=== PATIENT | female | born 1950 | race Two or more races ===

== ENCOUNTER 2017-08-03 14:25 | Outpatient (CLI) | payer OTHER | END 2017-08-03 14:30 | disposition home or self-care (01) | LOC: RAD 501 14:25 | DX: M25.561 Pain in right knee (principal) ==

== ENCOUNTER → 2017-08-29 | Outpatient (CLI) | payer OTHER | END | disposition home or self-care (01) | LOC: NUCLEAR 13:00 | DX: M81.0 Age-related osteoporosis without current pathological fracture (principal); M85.9 Disorder of bone density and structure, unspecified ==

== ENCOUNTER 2017-09-29 10:40 | Outpatient (CLI) | payer OTHER | END 2017-09-29 10:50 | disposition home or self-care (01) | LOC: LAB 10:40 | DX: E21.3 Hyperparathyroidism, unspecified (principal); E88.89 Other specified metabolic disorders; M81.8 Other osteoporosis without current pathological fracture; E83.42 Hypomagnesemia ==

== ENCOUNTER 2017-10-05 13:15 | Outpatient (CLI) | payer OTHER | END 2017-10-05 13:16 | disposition home or self-care (01) | LOC: SONOGRAMA 13:15 | DX: E03.8 Other specified hypothyroidism (principal); E07.89 Other specified disorders of thyroid ==

== ENCOUNTER 2017-12-08 11:18 | Outpatient (CLI) | payer OTHER | END 2017-12-08 15:00 | disposition home or self-care (01) | LOC: TOM 11:18 | DX: J45.31 Mild persistent asthma with (acute) exacerbation (principal) ==

== ENCOUNTER → 2018-03-06 | Outpatient (CLI) | payer OTHER | END | disposition home or self-care (01) | LOC: RAD 501 15:30 | DX: D16.21 Benign neoplasm of long bones of right lower limb (principal); M17.11 Unilateral primary osteoarthritis, right knee ==

== ENCOUNTER 2018-05-14 15:48 | Outpatient (CLI) | payer OTHER | END 2018-05-14 15:56 | disposition home or self-care (01) | LOC: RAD 501 15:48 | DX: M50.320 Other cervical disc degeneration, mid-cervical region, unspecified level (principal); M51.36 Other intervertebral disc degeneration, lumbar region; M43.16 Spondylolisthesis, lumbar region ==

== ENCOUNTER 2019-01-18 08:55 | Outpatient (CLI) | payer OTHER | END 2019-01-18 08:57 | disposition home or self-care (01) | LOC: NUCLEAR 08:55 | DX: M16.12 Unilateral primary osteoarthritis, left hip (principal); M87.052 Idiopathic aseptic necrosis of left femur | CPT/HCPCS: 78315; A9503 ==

== ENCOUNTER → 2024-07-18 08:01 | Outpatient (CLI) | payer OTHER | END | disposition home or self-care (01) | LOC: NUCLEAR 06:00 | PROVIDERS: ATTEND Specialist | DX: M16.11 Unilateral primary osteoarthritis, right hip (principal); S43.101A Unspecified dislocation of right acromioclavicular joint, initial encounter | CPT/HCPCS: 78315; A9503 ==